=== PATIENT | male | born 1970 | race African-American/Black ===

== ENCOUNTER 2018-04-21 02:03 | Emergency (ER) | payer MEDICARE ==
[~2018-04-21] VITALS: Ht 182.9 cm; Wt 105.0 kg
[2018-04-21] MEDS ORDERED: SODIUM CHLORIDE 0.9% 1,000 ML IV ONE (06:08)
[2018-04-21 06:46] LABS: HEMATOCRIT. 45.3 % (42.0-52.0); HEMOGLOBIN. 14.9 g/dL (14.0-18.0); MEAN CORPUSCULAR HEMOGLOBIN 35.3 pg (28.0-32.0); MEAN CORPUSCULAR VOLUME 106.8 fL (80.0-94.0); MEAN PLATELET VOLUME 11.2 fl (7.4-10.4); PLATELET 95 x1000/uL (130-400); RED BLOOD CELL COUNT 4.24 mill/uL (4.7-6.1); RED CELL DISTRIBUTION WIDTH 13.6 % (11.6-14.6)
[2018-04-21 06:51] LABS: CHLORIDE 106 mEq/L (98-107); PROTHROMBIN TIME 10.4 sec (9.1-11.1)
[2018-04-21 07:26] LABS: PLATELET ESTIMATE DECREASED
[2018-04-21 08:35] VITALS: BP 149/85
== END 2018-04-21 09:00 | disposition home or self-care (01) ==
LOC: ER 02:03
DX: J11.1 Influenza due to unidentified influenza virus with other respiratory manifestations (principal); D75.89 Other specified diseases of blood and blood-forming organs; D69.6 Thrombocytopenia, unspecified
CPT/HCPCS: 36415; 71045; 80053; 85025; 85610; 87804; 93005; 99284; J7030